=== PATIENT | male | born 1980 | race African-American/Black ===

== ENCOUNTER 2017-01-13 02:36 | Emergency (ER) | payer OTHER ==
[2017-01-13 03:41] LABS: BASOPHIL 0.6 % (0-2.0); EOSINOPHIL 1.1 % (0-4.5); MCH 24.8 pg (25.7-33.7); MCHC 32.3 g/dl (32.0-35.9); MEAN CELL VOLUME 76.8 fl (80-96); MEAN PLT VOLUME 9.3 fl (7.5-11.1); NEUTROPHILS 68.3 % (42.8-82.8); PLATELET COUNT 234 K/MM3 (134-434); WHITE BLOOD COUNT 11.5 K/mm3 (4.0-10.0)
[2017-01-13 04:13] LABS: ALBUMIN 3.5 g/dl (3.4-5.0); AMYLASE 37 U/L (25-115); ANION GAP 10 (8-16); BILIRUBIN,TOTAL 0.4 mg/dL (0.2-1.0); CALCIUM 8.9 mg/dL (8.5-10.1); CO2 28 mmol/L (21-32); CREATININE 0.8 mg/dL (0.7-1.3); GLUCOSE,RANDOM 222 mg/dL (74-106); SGOT/AST 39 U/L (15-37); SGPT/ALT 43 U/L (12-78); TOT PROT 7.6 g/dl (6.4-8.2)
[2017-01-13 04:15] LABS: ALK PHOS 124 U/L (45-117); TROPONIN I < 0.02 ng/ml (0.00-0.05)
[2017-01-13 04:20] LABS: THYROID STIMULATING HORMONE 0.69 uIU/ml (0.358-3.74)
--- NOTE | 2017-01-13 04:23 | PDOC ---
History of Present Illness - General Chief Complaint: Blood Sugar Problem Stated Complaint: BLOOD SUGAR PROBLEM Time Seen by Provider: 01/13/17 02:42 History Source: Patient Exam Limitations: No Limitations - History of Present Illness Initial Comments: 01/13/17 04:18 36yo Male patient w/ PmHx: HLD, HTN, NIDDM, "Heart Problems," presents to ED with multiple complaints. Patient states his "sugar" is acting up. He states he has not taken his medications in weeks because he has been drinking lots of alcohol and smoking marijuana. Patient reports while at a barbecue today; he did not feel right. Last EtOH use: < 1 hour ago. Patient also verbalized he would like to speak with someone or he will go out into public and act out. He stated, he went to [facility] 3 times this week, and each time they have discharged him home. He denies HI/SI at this time. Past History - Travel Traveled outside of the country in the last 30 days: No Close contact w/someone who was outside of country & ill: No - Past Medical History Allergies/Adverse Reactions: Allergies Allergy/AdvReac Type Severity Reaction Status Date / Time shellfish derived AdvReac Severe Difficulty Verified 01/13/17 02:48 Breathing Home Medications: Ambulatory Orders NK [No Known Home Medication] 07/09/15 Anemia: No Asthma: Yes Cancer: No Cardiac Disorders: No CVA: No COPD: No CHF: No Dementia: No Diabetes: No GI Disorders: No Disorders: No HTN: No Hypercholesterolemia: No Kidney Stones: No Liver Disease: No Suicide Attempt (Hx): No Seizures: No Thyroid Disease: No - Reproductive History Testicular Surgery: No - Immunization History Immunization Up to Date: Yes - Psycho/Social/Smoking Cessation Hx Anxiety: No Suicidal Ideation: No Smoking History: Current some day smoker Have you smoked in the past 12 months: Yes Number of Cigarettes Smoked Daily: 20 Information on smoking cessation initiated: No 'Breaking Loose' booklet given: 07/09/15 Hx Alcohol Use: No Drug/Substance Use Hx: No Substance Use Type: Alcohol, Cocaine, Heroin, Marijuana Hx Substance Use Treatment: Yes (discharged 07/10/15 with the same) Review of Systems - Review of Systems Able to Perform ROS?: Yes Is the patient limited Croatian proficient: No All Other Systems: Reviewed and Negative *Physical Exam - Vital Signs Last Vital Signs Temp Pulse Resp BP Pulse Ox 96 H 14 156/91 99 01/13/17 02:49 01/13/17 02:49 01/13/17 02:49 01/13/17 02:49 - Physical Exam General Appearance: Yes: Nourished, Appropriately Dressed. No: Apparent Distress, Mild Distress, Moderate Distress, Severe Distress Neck: positive: Trachea midline, Supple. negative: Stridor, Lymphadenopathy (R) , Lymphadenopathy (L), Tender lateral, Tender midline Respiratory/Chest: positive: Decreased Breath Sounds (Due to poor inspiratory effort.). negative: Respiratory Distress, Accessory Muscle Use, Labored Respiration, Rapid RR, Stridor, Wheezing Cardiovascular: positive: Regular Rhythm, Regular Rate Gastrointestinal/Abdominal: positive: Normal Bowel Sounds, Soft, Other (Large Abdomen) Musculoskeletal: positive: Normal Inspection. negative: CVA Tenderness Extremity: positive: Normal Capillary Refill, Normal Inspection, Normal Range of Motion. negative: Pedal Edema, Swelling, Calf Tenderness, Erythema, Inflammation Integumentary: positive: Normal Color, Dry, Warm. 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
[2017-01-13 04:38] LABS: SALICYLATE < 4.0 mg/dl (0.0-30.0)
[2017-01-13 05:01] LABS: ACETONE SERUM NEGATIVE (NEGATIVE)
[2017-01-13] MEDS ORDERED: POTASSIUM CHLORIDE TABS 20 MEQ TABLET.ER (FP) PO ONE ×2 (07:04→07:58)
[2017-01-13] MEDS ORDERED: SODIUM CHLORIDE 1,000 ML IV STA (07:24)
--- NOTE | 2017-01-13 07:26 | PDOC ---
*Physical Exam - Vital Signs Last Vital Signs Temp Pulse Resp BP Pulse Ox 96 H 14 156/91 99 01/13/17 02:49 01/13/17 02:49 01/13/17 02:49 01/13/17 02:49 ED Treatment Course - LABORATORY CBC & Chemistry Diagram: 01/13/17 03:11 01/13/17 03:11 - ADDITIONAL ORDERS Additional order review: Laboratory Results 01/13/17 01/13/17 01/13/17 03:11 03:11 03:11 Sodium Potassium Chloride Carbon Dioxide Anion Gap BUN Creatinine Creat Clearance w eGFR Random Glucose Calcium Total Bilirubin AST ALT Alkaline Phosphatase Creatine Kinase Creatine Kinase Index CK-MB (CK-2) CK-MB (CK-2) Rel Index Cancelled Troponin I Total Protein Albumin Total Amylase Lipase TSH 0.69 Salicylates < 4.0 Acetaminophen < 2.000 L Acetone, Qual 01/13/17 03:11 Sodium 141 Potassium 3.3 L Chloride 103 Carbon Dioxide 28 Anion Gap 10 BUN 8 Creatinine 0.8 Creat Clearance w eGFR > 60 Random Glucose 222 H D Calcium 8.9 Total Bilirubin 0.4 D AST 39 H D ALT 43 D Alkaline Phosphatase 124 H Creatine Kinase 596 H Creatine Kinase Index 0.2 CK-MB (CK-2) 1.276 CK-MB (CK-2) Rel Index Troponin I < 0.02 Total Protein 7.6 Albumin 3.5 Total Amylase 37 Lipase 78 TSH Salicylates Acetaminophen Acetone, Qual Negative 01/13/17 03:11 RBC 5.20 MCV 76.8 L MCHC 32.3 RDW 16.0 H MPV 9.3 Neutrophils % 68.3 Lymphocytes % 23.2 D Monocytes % 6.8 Eosinophils % 1.1 Basophils % 0.6 Medical Decision Making - Medical Decision Making 01/13/17 07:25 Patient received in sign out from MARY Black. Patient with elevated CK and low potassium. Patient was given Juany Dur and will be given a number saline bolus and will check magnesium secondary to alcohol intake. Patient requesting psych secondary to auditory hallucinations but denies any hopelessness. Patient states history of bipolar and auditory hallucinations and was on Seroquel up until October but when he was discharged from nursing home, he was not given his prescription and did not follow-up with his psychiatrist. Patient states sometimes the voices told to do things that he would not normally do including saying things, binge drinking, and acting bizarre. Patient denies plan to injure others or himself. 01/13/17 01/13/17 01/13/17 03:11 03:11 03:11 WBC 11.5 H Hgb 12.9 Hct 40.0 Plt Count 234 Neutrophils % 68.3 Potassium 3.3 L Random Glucose 222 H D AST 39 H D ALT 43 D Creatine Kinase 596 H Troponin I < 0.02 TSH Salicylates < 4.0 Acetaminophen < 2.000 L Acetone, Qual Negative 01/13/17 03:11 WBC Hgb Hct Plt Count Neutrophils % Potassium Random Glucose AST ALT Creatine Kinase Troponin I TSH 0.69 Salicylates Acetaminophen Acetone, Qual 01/13/17 08:18 Laboratory Tests 01/13/17 03:11 Magnesium 2.1 TSH 0.[address] Sandhu. 01/13/17 11:47 Laboratory Tests 01/13/17 10:12 Phencyclidine Screen Positive U Marijuana (THC) Screen Positive Patient has been seen by Dr. Waller psychiatrist who feels patient would benefit from an inpatient psychiatric facility. Patient has been medically cleared by emergency medical staff. Vital signs are within normal limits.. Patient is otherwise stable from a medical standpoint. 01/13/17 13:20 [address]iscuss[address] case with psychiatrist Dr. Marcano at [facility] psychiatric emergency department. He has accepted the patient was he will wait for a bed until inpatient psychiatric bed is available. Patient remained stable here. Patient ate lunch and patient currently resting. *DC/Admit/Observation/Transfer Diagnosis at time of Disposition: Polysubstance abuse, Bipolar affective disorder, Auditory hallucinations - Discharge Dispostion Disposition: TRANSFER ACUTE CARE/OTHER HOSP Condition at time of disposition: Good - Patient Instructions Printed Discharge Instructions: DI for Bipolar Disorder Additional Instructions: Please utilize all your resources at the facility and remain on medication as prescribed. - Transfer to Acute Care Facility Receiving Facility: [facility] Accepting Physician:: rissa
[2017-01-13 07:55] LABS: MAGNESIUM 2.1 mg/dL (1.8-2.4)
[2017-01-13 08:26] VITALS: TEMP 98.3
[2017-01-13 10:32] LABS: URINE APPEARANCE CLEAR; URINE BILIRUBIN NEGATIVE (NEGATIVE); URINE BLOOD NEGATIVE (NEGATIVE); URINE COLOR YELLOW; URINE GLUCOSE (UA) 3+ (NEGATIVE); URINE KETONE TRACE (NEGATIVE); URINE LEUK ESTERASE NEGATIVE (NEGATIVE); URINE NITRITE NEGATIVE (NEGATIVE); URINE PROTEIN NEGATIVE (NEGATIVE); URINE UROBILINOGEN 2.0 E.U/dl E.U./dl (0.2-1.0)
[2017-01-13 10:52] LABS: URINE MARIJUANA THC POSITIVE ng/ml (CUTOFF=50)
--- NOTE | 2017-01-13 11:54 | CON.PSY ---
Psychiatry Consult Chief Complaint: i ma hearing voices telling me to kill myself and hurt others. Symptoms: reports: Hallucinations - Previous Psychiatric Treatment Outpatient: Less than 6 mos ago Inpatient: 2 or more prior admissions - Previous Substance Abuse Treatment Outpatient: None - Reason for Previous Treatment Reason for Previous Treatment: Psychotic Episode - Allergies Allergies: Allergies Allergy/AdvReac Type Severity Reaction Status Date / Time shellfish derived AdvReac Severe Difficulty Verified 01/13/17 02:48 Breathing - Current Living Status Usual Living Arrangement: Alone - Current Mental Status Evaluation Appearance: Disheveled Attitude: Guarded - Affect Affect: Constrictive Appropriateness: Not Appropriate - Mood Mood: Anxious - Speech/Language Expressive: Coherent - Psychomotor Activity Psychomotor Activity: Slowed - Thought Process Thought Process: Circumstantial - Thought Content Hallucinations: Present Type: Auditory Delusions: Absent - Self Perception Self Perception: No Impairment - Cognition Attention: Alert Orientation: Time Memory, Immediate Recall: Intact Memory, Remote with Promptin/3 - Concentration Serial Sevens Intact: No Simple Calculations Intact: No - Abstraction Proverb Interpretation: Impaired Judgement: Moderately Impaired - Insight Insight: Impaired - Impulse Control Impulse Control: Minimally Impaired - Suicidal Ideation Suicidal Ideation: No - Homicidal Ideation Homicidal Ideation: Yes (command hallucinations) Assessment/Plan Rec In patiemt psych admission.
[2017-01-13] MEDS ORDERED: ACETAMINOPHEN 500 MG TABLET (FP) PO ONE (12:45)
[2017-01-13] MEDS ORDERED: ACETAMINOPHEN 325 MG TABLET (FP) ONE (12:47)
[2017-01-13 13:47] VITALS: BMI 33.9
[2017-01-13] MEDS ORDERED: IBUPROFEN 600 MG TABLET (FP) PO ONE ×2 (14:24→14:25)
[2017-01-13 14:48] VITALS: BP 165/95; PULSE 81
== END 2017-01-13 15:09 | disposition short-term general hospital (02) ==
LOC: JER 02:36
DX: R44.0 Auditory hallucinations (principal); F31.9 Bipolar disorder, unspecified; F19.10 Other psychoactive substance abuse, uncomplicated; I10 Essential (primary) hypertension; E11.9 Type 2 diabetes mellitus without complications; E78.5 Hyperlipidemia, unspecified; I51.9 Heart disease, unspecified; F17.210 Nicotine dependence, cigarettes, uncomplicated
CPT/HCPCS: 36415; 80053; 80307; 81003; 82009; 82150; 82550; 82553; 83690; 83735; 84443; 84484; 85025; 99283-25

== ENCOUNTER 2017-01-24 01:42 | Emergency (ER) | payer OTHER ==
[2017-01-24 02:06] VITALS: BP 138/68; PULSE 99; TEMP 97.2; BMI 37.8
== END 2017-01-24 03:16 | disposition left against medical advice (07) ==
LOC: JER 01:42
DX: Z53.21 Procedure and treatment not carried out due to patient leaving prior to being seen by health care provider (principal)
CPT/HCPCS: 99282-25

== ENCOUNTER 2018-03-21 00:35 | Emergency (ER) | payer OTHER ==
[2018-03-21 00:52] VITALS: BP 155/92; PULSE 88; TEMP 98.5; BMI 36.9
[2018-03-21] MEDS ORDERED: SODIUM CHLORIDE 0.9% 500 ML INFUS.BAG IV ONE (02:03)
--- NOTE | 2018-03-21 02:14 | PDOC ---
History of Present Illness - General Chief Complaint: Blood Sugar Problem Stated Complaint: BLOOD SUGAR/FOOT NUMBNESS Time Seen by Provider: 03/21/18 01:12 History Source: Patient Exam Limitations: No Limitations - History of Present Illness Initial Comments: 03/21/18 02:12 Patient is 37 year old male with h/o DM, TTP c/o right leg numbness, pain to the thigh since 3 pm today. States was sitting in Bible study and developed this crampy pain /10 in the right posterior thigh and then got numbness down the leg. He has had prior history of similar symptoms with elevation in his blood sugar 3-4 months ago. He reports has not taken his lantus inuslin in 2 weeks and his regular insulin since 02/16. States he ran out and has not been ago to get his meds due to insurance problems. Has been drinking lots of water to keep his BS done. Denies any chest pain, sob, abdominal pain. confusion. PMHX: as above PSOCHX: neg cig, former substance abuse ALL: NKDA GENERAL/CONSTITUTIONAL: [No fever or chills. No weakness. No weight change.] HEAD, EYES, EARS, NOSE AND THROAT: [No change in vision. No ear pain or discharge. No sore throat.] CARDIOVASCULAR: [No chest pain or shortness of breath.] RESPIRATORY: [No cough, wheezing, or hemoptysis.] GASTROINTESTINAL: [No nausea, vomiting, diarrhea or constipation. No rectal bleeding.] GENITOURINARY: [No dysuria, frequency, or change in urination.] MUSCULOSKELETAL: [No joint (+) muscle pain, (-) swelling. No neck or back pain.] SKIN AND BREASTS: [No rash or easy bruising.] NEUROLOGIC: [No headache, vertigo, loss of consciousness, or loss of sensation.] PSYCHIATRIC: [No depression or anxiety.] ENDOCRINE: (+) increased thirst. No abnormal weight change.] HEMATOLOGIC/LYMPHATIC: [No anemia, easy bleeding, or history of blood clots.] ALLERGIC/IMMUNOLOGIC: [No hives or skin allergy. No latex allergy.] GENERAL: [The patient is awake, alert, and fully oriented, in no acute distress. ] HEAD: [Normal with no signs of trauma.] EYES: [Pupils equal, round and reactive to light, extraocular movements intact, sclera anicteric, conjunctiva clear.] ENT: [Ears normal, nares patent, oropharynx clear without exudates. Moist mucous membranes.] NECK: [Normal range of motion, supple without lymphadenopathy, JVD, or masses.] LUNGS: [Breath sounds equal, clear to auscultation bilaterally. No wheezes, and no crackles.] HEART: [Regular rate and rhythm, normal S1 and S2 without murmur, rub.] ABDOMEN: [Soft, nontender, normoactive bowel sounds. No guarding, no rebound. No masses.] EXTREMITIES: [Normal range of motion, no edema. No clubbing or cyanosis. No cords, erythema, (+) right thigh tenderness.] NEUROLOGICAL: [Cranial nerves II through XII grossly intact. Normal speech, normal gait.] PSYCH: [Normal mood, normal affect.] SKIN: [Warm, Dry, normal turgor, no rashes or lesions noted.] Past History - Past Medical History Allergies/Adverse Reactions: Allergies Allergy/AdvReac Type Severity Reaction Status Date / Time Iodinated Contrast- Oral and Allergy Verified 03/21/18 00:53 IV Dye shellfish derived AdvReac Severe Difficulty Verified 03/21/18 00:53 Breathing Home Medications: Ambulatory Orders Insulin (Levemir) [Levemir Flexpen -] 40 units SQ HS 01/24/17 metFORMIN HCL [Metformin HCl] 500 mg PO BID 01/24/17 Insulin Glargine,Hum.rec.anlog [Lantus] 40 unit SQ HS #1 vial 03/21/18 Insulin Regular [NOVOLIN R VIAL *IVPUSH / ER / ICU Only*] 0 units SQ TID Insulin Regular [Novolin R Vial -] 2 units SQ TID #1 vial 03/21/18 Anemia: No Asthma: Yes Cancer: No Cardiac Disorders: No CVA: No COPD: No CHF: No Dementia: No Diabetes: Yes GI Disorders: No Disorders: No HTN: No Hypercholesterolemia: No Kidney Stones: No Liver Disease: No Seizures: No Thyroid Disease: No - Reproductive History Testicular Surgery: No - Immunization History Immunization Up to Date: Yes - Suicide/Smoking/Psychosocial Hx Smoking History: Never smoked Have you smoked in the past 12 months: Yes Number of Cigarettes Smoked Daily: 20 Information on smoking cessation initiated: No 'Breaking Loose' booklet given: 07/09/15 Hx Alcohol Use: Yes Drug/Substance Use Hx: Yes (marijuana) Substance Use Type: Alcohol, Cocaine, Heroin, Marijuana Hx Substance Use Treatment: Yes (discharged 07/10/15 with the same) *Physical Exam - Vital Signs Last Vital Signs Temp Pulse Resp BP Pulse Ox 98.5 F 88 18 155/92 99 03/21/18 00:50 03/21/18 00:50 03/21/18 00:50 03/21/18 00:50 03/21/18 00:50 ED Treatment Course - LABORATORY CBC & Chemistry Diagram: 03/21/18 02:00 03/21/18 02:00 - ADDITIONAL ORDERS Additional order review: Laboratory Results 03/21/18 01:51 POC Glucometer [id number] 03/21/18 01:51 POC Glucometer [id number] - Medications Given in the ED: ED Medications Discontinued Medications Generic Name Dose Route Start Last Admin Trade Name Freq PRN Reason Stop Dose Admin Sodium Chloride 1,000 ml 03/21/18 02:03 03/21/18 02:04 Normal Saline - IV 03/21/18 02:04 1,000 ml ONCE ONE Administration Medical Decision Making - Medical Decision Making 03/21/18 02:12 Patient is 37 year old male with h/o DM, TTP c/o right leg numbness, pain to the thigh since 3 pm today, similar to pain in the past with elevation in his blood sugar. will get labs r/o dka hydration No acute findings on labs 03/21/18 05:57 Laboratory Tests 03/21/18 03/21/18 02:00 02:11 D-Dimer 407 Sodium 137 Potassium 4.0 D Chloride 102 Carbon Dioxide 28 Anion Gap 7 L Random Glucose 315 H* D will discharge and given rx for insulin I discussed the physical exam findings, ancillary test results and final diagnoses with the patient. I answered all of the patient's questions. The patient was satisfied with the care received and felt comfortable with the discharge plan and treatment plan. The Patient agrees to follow up with the primary care physician within 24-72 hours. *DC/Admit/Observation/Transfer Diagnosis at time of Disposition: Leg cramping, Hyperglycemia - Discharge Dispostion Disposition: HOME Condition at time of disposition: Stable - Prescriptions Prescriptions: Insulin Glargine,Hum.rec.anlog [Lantus] 40 unit SQ HS #1 vial Insulin Regular [Novolin R Vial -] 2 units SQ TID #1 vial - Referrals - Patient Instructions Additional Instructions: You must follow up with your pmd in 1-2 days, return to the ED if worsening symptoms - Post Discharge Activity
[2018-03-21 02:16] LABS: EOS % 1.3 % (0-4.5); HEMATOCRIT 41.8 % (35.4-49); HEMOGLOBIN 13.5 GM/dL (11.7-16.9); LYMPH % 28.7 % (8-40); MCH 25.3 pg (25.7-33.7); MCHC 32.3 g/dl (32.0-35.9); MEAN CELL VOLUME 78.4 fl (80-96); MEAN PLT VOLUME 9.7 fl (7.5-11.1); MONO % 6.3 % (3.8-10.2); NEUT % 62.7 % (42.8-82.8); PLATELET COUNT 254 K/MM3 (134-434); RBC 5.33 M/mm3 (4.00-5.60); RDW 15.7 % (11.9-15.9); WHITE BLOOD COUNT 10.1 K/mm3 (4.0-10.0)
[2018-03-21 02:21] LABS: URINE APPEARANCE CLEAR; URINE BILIRUBIN NEGATIVE (<2.0 mg/dL); URINE COLOR LTYELLOW; URINE GLUCOSE (UA) 3+ (NEGATIVE); URINE KETONE TRACE (NEGATIVE); URINE LEUK ESTERASE NEGATIVE (NEGATIVE); URINE NITRITE NEGATIVE (NEGATIVE); URINE PROTEIN NEGATIVE (NEGATIVE)
[2018-03-21 02:31] LABS: INR 1.02 (0.83-1.09); PROTHROMBIN TIME (PATIENT) 11.5 SEC (9.7-13.0)
[2018-03-21 02:33] LABS: ACTIVATED PTT 30.6 SECONDS (25.2-36.5)
[2018-03-21 02:39] LABS: ALBUMIN 3.4 g/dl (3.4-5.0); ALK PHOS 123 U/L (45-117); ANION GAP 7 MMOL/L (8-16); BILIRUBIN,TOTAL 0.3 mg/dL (0.2-1.0); BLOOD UREA NITROGEN 11 mg/dL (7-18); CALCIUM 8.8 mg/dL (8.5-10.1); CHLORIDE 102 mmol/L (98-107); CO2 28 mmol/L (21-32); CREATININE 0.9 mg/dL (0.7-1.3); SGOT/AST 12 U/L (15-37); SGPT/ALT 38 U/L (12-78); SODIUM 137 mmol/L (136-145); TOT PROT 7.4 g/dl (6.4-8.2)
[2018-03-21 02:41] LABS: GLUCOSE,RANDOM 315 mg/dL (74-106)
[2018-03-21] MEDS ORDERED: ACETAMINOPHEN 500 MG TABLET (FP) PO ONE (04:26)
[2018-03-21] MEDS ORDERED: INSULIN (LEVEMIR) 100 UNITS/ML UNITS SQ ONE ×2 (04:26→04:34)
[2018-03-21] MEDS ORDERED: ACETAMINOPHEN 325 MG TABLET (FP) ONE (04:32)
== END 2018-03-21 06:54 | disposition home or self-care (01) ==
LOC: JER 00:35
PROC: 3E013VG Introduction of Insulin into Subcutaneous Tissue, Percutaneous Approach (ICD-10-PCS; principal; 2018-03-21)
DX: E10.65 Type 1 diabetes mellitus with hyperglycemia (principal); R25.2 Cramp and spasm; Z79.4 Long term (current) use of insulin
CPT/HCPCS: 36415; 80053; 81003; 82962; 85025; 85379; 85610; 85730; 96372; 99283-25

== ENCOUNTER 2018-04-07 18:34 | Emergency (ER) | payer OTHER ==
[2018-04-07] MEDS ORDERED: IBUPROFEN 400 MG TABLET (FP) PO ONE ×2 (18:41→20:33)
[2018-04-07 18:42] VITALS: BP 153/93; PULSE 78; TEMP 98; BMI 37.3
--- NOTE | 2018-04-07 18:44 | PDOC ---
Rapid Medical Evaluation Chief Complaint: Injury Time Seen by Provider: 04/07/18 18:40 Medical Evaluation: Allergies Allergy/AdvReac Type Severity Reaction Status Date / Time Iodinated Contrast- Oral and Allergy Verified 03/21/18 00:53 IV Dye shellfish derived AdvReac Severe Difficulty Verified 03/21/18 00:53 Breathing Vital Signs Temp Pulse Resp BP Pulse Ox 98 F 78 19 153/93 100 04/07/18 18:40 04/07/18 18:40 04/07/18 18:40 04/07/18 18:40 04/07/18 18:40 04/07/18 18:42 I have performed a brief in person evaluation of this patient. The patient presents with chief complaint of : left anterior knee pain s/p slip on oil and fall hitting left knee Pertinent PE findings: moderate tenderness over anterior infra-patella region of left knee I have ordered the following: x-ray of left knee The patient will proceed to the ER for further evaluation Discharge Disposition - Diagnosis Left anterior knee pain - Referrals - Patient Instructions - Post Discharge Activity
--- NOTE | 2018-04-07 20:18 | PDOC ---
Attending Attestation - Resident Resident Name: Rogerio Goodman - ED Attending Attestation I have performed the following: I have examined & evaluated the patient, The case was reviewed & discussed with the resident, I agree w/resident's findings & plan, Exceptions are as noted - Medical Decision Making 04/07/18 20:18 I, Dr. Hermelinda Ga, DO, attest that this document has been prepared under my direction and personally reviewed by me in its entirety. I further attest, that it accurately reflects all work, treatment, procedures and medical decision -making performed by me. 04/07/18 20:50 a/p: 37yo male with mechanical slip and fall and twisted his L knee -pt with mild soft tissue swelling, no ecchymosis or erythema -ternderness medially along the ligament -will obtain xrays -will give straight leg brace and crutches will need orthopedic follow up 04/07/18 21:19 xrays do not show acute findings <Hermelinda Ga - Last Filed: 04/07/18 21:19> - HPI HPI: 04/07/18 21:37 The patient is a 37 year old male, with a significant past medical history of asthma and diabetes, who presents to the ED complaining of left knee pain after a mechanical fall today. He notes that he slipped and fell today and fell on his left knee. He describes the jacobs as ranging from mild to moderate, without radiation. He notes that it is painful to ambulate and to bear weight. He denies any other kinds of injuries. The patient denies chest pain, shortness of breath, headache and dizziness. Allergies: IV dye contrast Past surgical history: None reported Social History: Alcohol, Cocaine, Heroin, Marijuana. Cigarette use (20 daily) - Physicial Exam PE: 04/07/18 21:36 Constitutional: Awake, alert, oriented. No acute distress. Head: Normocephalic. Atraumatic Eyes: PERRL. EOMI. Conjunctivae are not pale. ENT: Mucous membranes are moist and intact. Posterior pharynx without exudates or erythema. Uvula midline. Neck: Supple. Full ROM. No lymphadenopathy. Cardiovascular: Regular rate. Regular rhythm. S1, S2 regular. Distal pulses are 2+ and symmetric. Pulmonary/Chest: No evidence of respiratory distress. Clear to auscultation bilaterally No wheezing, rales or rhonchi. Abdominal: Soft and non-distended. There is no tenderness. No rebound, guarding or rigidity. No organomegaly. No palpable masses. Good bowel sounds. Back: No CVA tenderness. Musculoskeletal: (+) Warmth and swelling of left knee. No abrasions or cuts noted. Able to raise and extend the knee but limited ROM and flexion secondary to pain. Tendenress over medial aspect of the left MCL. Skin: Skin is warm and dry. No petechiae. No purpura. Neurological: Alert and oriented to person, place, and time. Cranial nerves II -XII are grossly intact. Normal speech. Strength is grossly symmetric. No sensory deficits. Psychiatric: Good eye contact. Normal interaction, affect and behavior. <Porfirio Byrd - Last Filed: 04/07/18 21:40>
--- NOTE | 2018-04-07 21:08 | PDOC ---
History of Present Illness - General Chief Complaint: Injury Stated Complaint: FALL/ LT KNEE PAIN Time Seen by Provider: 04/07/18 18:40 - History of Present Illness Initial Comments: 04/07/18 21:22 37 yo M w/ a hx of alcohol abuse is here after he tripped on a pile of oil, slipped, fell backwards and landed on his Left knee. He heard a pop and is sure he tore multiple ligaments in his knee. He claims his knee swelled up after the fall and he was not able to put weight on the knee. He once tore the meniscus in his Right knee and said this was way worse than that. He has not taken any medication for the pain. He denies recent fevers, chills, or infection. Denies chest pain, SOB, or difficulty breathing. Past History - Past Medical History Allergies/Adverse Reactions: Allergies Allergy/AdvReac Type Severity Reaction Status Date / Time Iodinated Contrast- Oral and Allergy Verified 04/07/18 18:42 IV Dye shellfish derived AdvReac Severe Difficulty Verified 04/07/18 18:42 Breathing Home Medications: Ambulatory Orders Insulin (Levemir) [Levemir Flexpen -] 40 units SQ HS 01/24/17 metFORMIN HCL [Metformin HCl] 500 mg PO BID 01/24/17 Insulin Glargine,Hum.rec.anlog [Lantus] 40 unit SQ HS #1 vial 03/21/18 Insulin Regular [NOVOLIN R VIAL *IVPUSH / ER / ICU Only*] 0 units SQ TID Insulin Regular [Novolin R Vial -] 2 units SQ TID #1 vial 03/21/18 Anemia: No Asthma: Yes Cancer: No Cardiac Disorders: No CVA: No COPD: No CHF: No DVT: No Dementia: No Diabetes: Yes GI Disorders: No Disorders: No HTN: No Hypercholesterolemia: No Kidney Stones: No Liver Disease: No Seizures: No Thyroid Disease: No - Reproductive History Testicular Surgery: No - Immunization History Immunization Up to Date: Yes - Suicide/Smoking/Psychosocial Hx Smoking History: Current every day smoker Have you smoked in the past 12 months: Yes Number of Cigarettes Smoked Daily: 10 Information on smoking cessation initiated: Yes 'Breaking Loose' booklet given: 04/07/18 Hx Alcohol Use: No Drug/Substance Use Hx: No Substance Use Type: None Hx Substance Use Treatment: Yes (discharged 07/10/15 with the same) Review of Systems - Review of Systems Comments:: 04/07/18 21:25 MUSCULOSKELETAL: Left knee: myalgia, arthralgia, joint swelling CONSTITUTIONAL: Absent: fever, chills, diaphoresis, generalized weakness, malaise, loss of appetite HEENT: Absent: rhinorrhea, nasal congestion, throat pain, throat swelling, difficulty swallowing, mouth swelling, ear pain, eye pain, visual Changes CARDIOVASCULAR: Absent: chest pain, syncope, palpitations, irregular heart rate, lightheadedness , peripheral edema RESPIRATORY: Absent: cough, shortness of breath, dyspnea with exertion, orthopnea, wheezing, stridor, hemoptysis GASTROINTESTINAL: Absent: abdominal pain, abdominal distension, nausea, vomiting, diarrhea, constipation, melena, hematochezia GENITOURINARY: Absent: dysuria, frequency, urgency, hesitancy, hematuria, flank pain, genital pain SKIN: Absent: rash, itching, pallor HEMATOLOGIC/IMMUNOLOGIC: Absent: easy bleeding, easy bruising, lymphadenopathy, frequent infections ENDOCRINE: Absent: unexplained weight gain, unexplained weight loss, heat intolerance, cold intolerance NEUROLOGIC: Positive: unsteady gait Absent: headache, focal weakness or paresthesias, dizziness, seizure, mental status changes, bladder or bowel incontinence PSYCHIATRIC: Positive: Anxiety Absent: depression, suicidal or homicidal ideation, hallucinations. *Physical Exam - Vital Signs Last Vital Signs Temp Pulse Resp BP Pulse Ox 98 F 78 19 153/93 100 04/07/18 18:40 04/07/18 18:40 04/07/18 18:40 04/07/18 18:40 04/07/18 18:40 - Physical Exam Comments: 04/07/18 21:27 Left Knee: The knee is mildly warmer than the R knee. it appears minimally swollen with no obvious effusion. There was significant tenderness to palpation at the medial aspect of his knee. Negative anterior and posterior drawer tests. His ROM is limited. There is significantly less strength in his L knee compared to the right. Normal sensation throughout both legs. 2+ pulses in both ankles. MUSCULOSKELETAL Normal range of motion at all other joints. No bony deformities or tenderness. No CVA tenderness. GENERAL: Well developed, well nourished. Awake and alert. No acute distress. HEENT: Normocephalic, atraumatic. PERRLA, EOMI. No conjunctival pallor. Sclera are non- icteric. Moist mucous membranes. Oropharynx is clear. NECK: Supple. Full ROM. No JVD. No thyromegaly. No lymphadenopathy. CARDIOVASCULAR: Regular rate and rhythm. No murmurs, rubs, or gallops. Distal pulses are 2+ and symmetric. PULMONARY: No evidence of respiratory distress. Lungs clear to auscultation bilaterally. No wheezing, rales or rhonchi. ABDOMINAL: Soft. Non-tender. Non-distended. No rebound or guarding. No organomegaly. Normoactive bowel sounds. EXTREMITIES: No cyanosis. No clubbing. No edema. No calf tenderness. SKIN: Warm and dry. Normal capillary refill. No rashes. No jaundice. NEUROLOGICAL: Alert, awake, appropriate. Cranial nerves 2-12 intact. Normal speech. PSYCHIATRIC: Cooperative. Good eye contact. Appropriate mood and affect. ED Treatment Course - Medications Given in the ED: ED Medications Discontinued Medications Generic Name Dose Route Start Last Admin Trade Name Desiree PRN Reason Stop Dose Admin Ibuprofen 800 mg 04/07/18 18:41 04/07/18 20:34 Motrin - PO 04/07/18 18:42 800 mg ONCE ONE Administration Medical Decision Making - Medical Decision Making 04/07/18 21:30 37 yo M slipped on oil, fell and experienced a traumatic blow to the knee. Xray showed no broken bones. This is likely a ligamentous or meniscal injury. This can be better assessed with an MRI as an outpatient. The knee is stable and not septic. He is neuro-vascularly intact. Plan: Ibuprofen, RICE, straight leg cast, crutches, DC with ortho FU. *DC/Admit/Observation/Transfer Diagnosis at time of Disposition: Left anterior knee pain, Knee joint injury - Discharge Dispostion Disposition: HOME Condition at time of disposition: Stable Decision to Admit order: No - Referrals Referrals: Allan Christine MD [Staff Physician] - Elias Guzman MD [Staff Physician] - Lon Mcgraw MD [Staff Physician] - - Patient Instructions Printed Discharge Instructions: Meniscal Tear, DI for Knee Pain, How to Use a Knee Immobilizer Additional Instructions: Please call up the orthopedics we are referring you to and schedule an appointment in the next 3 to 5 days. Take ibuprofen (Advil or motrin) for your knee pain. Try to keep your knee elevated as much as possible for the next 48 hours. Try to rest your knee as much as possible. Put ice on your knee for 20 minutes once every 2 hours for the next 2 days. Come back to the ER if you develop a fever, your pain worsens or have other concerning symptoms. Print Language: NAURUAN - Post Discharge Activity
== END 2018-04-07 21:17 | disposition home or self-care (01) ==
LOC: JERFT 18:34 → JER 18:34
DX: M25.562 Pain in left knee (principal); J45.909 Unspecified asthma, uncomplicated; E11.9 Type 2 diabetes mellitus without complications; F17.210 Nicotine dependence, cigarettes, uncomplicated
CPT/HCPCS: 73562-TC-LT-FY; 99281-25

== ENCOUNTER 2018-06-22 20:48 | Inpatient (IN) | payer OTHER ==
[2018-06-22 21:03] VITALS: BMI 38.9
--- NOTE | 2018-06-22 21:12 | HP ---
COWS - Scale Resting Pulse: 1= NH 81-100 Sweatin= No chills or Flushing Restless Observation: 0= Sits Still Pupil Size: 0= Normal to Room Light Bone or Joint Aches: 4=Acute Joint/Muscle Pain Runny Nose/ Eye Tearin= Nasal Congestion GI Upset > 30mins: 0= None Tremor Observation: 2= Slight Tremor Visible Yawning Observation: 0= None Anxiety or Irritability: 2=Irritable/Anxious Goose Flesh Skin: 0=Smooth Skin COWS Score: 10 CIWA Score - Admission Criteria [facility] Guidelines: Admission for Medically Managed Detox: Requires at least one of the followin. CIWA greater than 12 2. Seizures within the past 24 hours 3. Delirium tremens within the past 24 hours 4. Hallucinations within the past 24 hours 5. Acute intervention needed for co occurring medical disorder 6. Acute intervention needed for co occurring psychiatric disorder 7. Severe withdrawal that cannot be handled at a lower level of care (continued vomiting, continued diarrhea, abnormal vital signs) requiring intravenous medication and/or fluids 8. Admission [facility] Chief Complaint: c/o withdrawal sx's. seeking detox txment. Allergies/Adverse Reactions: Allergies Allergy/AdvReac Type Severity Reaction Status Date / Time Iodinated Contrast- Oral and Allergy Verified 06/22/18 21:08 IV Dye shellfish derived AdvReac Severe Difficulty Verified 06/22/18 21:08 Breathing History of Present Illness: Y.O. MALE WITH OPIOID AND COCAINE DEPENDENCE HERE FOR DETOX TXMENT. CLIENT IS SELF REFERRED. HE WAS LAST HERE IN 2014. HE IS SLATED TO START NEW FOCUS 2017. C/O WORSENING WITHDRAWAL SX'S. COWS 10. REPORTS LONGEST CLEAN TIME 3 YEARS SELF SUSTAINED. REPORTS MOST RESENT CLEAN TIME 6 MONTHS THIS PAST YEAR, RELAPSING 02/2018. HX/O DRUG O.D., DENIES SEIZURE D/O, SI/HI, AVH. PMHX- DM, THROMBOTIC THROMBOCYTOPENIC PURPURA, ASTHMA PSYCH- DEPRESSION, BIPOLAR MEDS- SHORT/LONG ACTING INSULIN. SEROQUEL NOT COMPLAINT Exam Limitations: No Limitations - Ebola screening Have you traveled outside of the country in the last 21 days: No Have you had contact with anyone from an Ebola affected area: No Have you been sick,other than usual withdrawal symptoms: No Do you have a fever: No - Review of Systems Constitutional: Malaise, Changes in sleep EENT: reports: Dental Problems (MISSING TEETH) Respiratory: reports: No Symptoms reported Cardiac: reports: No Symptoms Reported GI: reports: No Symptoms Reported : reports: No Symptoms Reported Musculoskeletal: reports: Back Pain, Joint Pain Integumentary: reports: No Symptoms Reported Neuro: reports: No Symptoms reported Endocrine: reports: Other (HX/O DM) Hematology: reports: Easy Bleeding (HX/O TTP) Psychiatric: reports: Depressed Other Systems: Reviewed and Negative Patient History - Patient Medical History Hx Anemia: No Hx Asthma: Yes Hx Chronic Obstructive Pulmonary Disease (COPD): No Hx Cancer: No Hx Cardiac Disorders: No Hx Congestive Heart Failure: No Hx Hypertension: No Hx Hypercholesterolemia: No Hx Pacemaker: No HX Cerebrovascular Accident: No Hx Seizures: No Hx Dementia: No Hx Diabetes: Yes Hx Gastrointestinal Disorders: No Hx Liver Disease: No Hx Genitourinary Disorders: No Hx Sexually Transmitted Disorders: No Hx Renal Disease (ESRD): No Hx Thyroid Disease: No Hx Human Immunodeficiency Virus (HIV): No Hx Hepatitis C: No Hx Depression: Yes Hx Suicide Attempt: No Hx Bipolar Disorder: No Hx Schizophrenia: No Other Medical History: TTP - Patient Surgical History Past Surgical History: No - PPD History Previous Implant?: Yes Documented Results: Negative w/proof Implanted On Prior [facility] Admission?: Yes Date: 07/11/15 Results: NO READING PPD to be Administered?: Yes - Smoking Cessation Smoking history: Current every day smoker Have you smoked in the past 12 months: Yes Aproximately how many cigarettes per day: 20 Cigars Per Day: 0 Hx Chewing Tobacco Use: No Initiated information on smoking cessation: Yes 'Breaking Loose' booklet given: 06/22/18 - Substance & Tx. History Hx Alcohol Use: No Hx Substance Use: Yes Substance Use Type: Cocaine, Heroin Hx Substance Use Treatment: Yes ([facility]) - Substances Abused HEROIN Route: Inhalation Frequency: Daily Amount used: 4 BAGS Age of first use: 31 Date of Last Use: 06/22/18 Family Disease History - Family Disease History Family Disease History: Diabetes: Grandparent, Respiratory: Brother (ASTHMA), Sister (ASTHMA) Admission Physical Exam [facility] - Vital Signs Vital Signs: Vital Signs - 24 hr 06/22/18 21:00 Temperature 97.4 F L Pulse Rate 97 H Respiratory 18 Rate Blood Pressure 145/74 - Physical General Appearance: Yes: Disheveled, Tremorous (FELLLT), Irritable, Other ( MALODUROUS) HEENTM: Yes: EOMI, Normocephalic, Normal Voice, RACQUEL, Pharynx Normal, Nasal Congestion, Other (POOR DENTITION) Respiratory: Yes: Chest Non-Tender, Lungs Clear, Normal Breath Sounds, No Respiratory Distress, No Accessory Muscle Use Neck: Yes: No masses,lesions,Nodules, Supple, Trachea in good position Breast: Yes: Breast Exam Deferred Cardiology: Yes: Regular Rhythm, S1, S2, Tachycardia Abdominal: Yes: Normal Bowel Sounds, Non Tender, Soft, Protuberent Genitourinary: Yes: Within Normal Limits (DENIES C/O) Back: Yes: Normal Inspection Musculoskeletal: Yes: full range of Motion, Other (AMbulates with cane for unsteady gait r/t to back pain and knee pain) Extremities: Yes: Normal Range of Motion, Non-Tender, Tremors (felt), Pedal Edema (trace edema to ble) Neurological: Yes: Fully Oriented, Alert, Depressed Affect Integumentary: Yes: Dry, Warm Lymphatic: Yes: Within Normal Limits - Diagnostic (1) Opioid dependence with withdrawal Current Visit: Yes Status: Acute (2) Diabetes Current Visit: Yes Status: Chronic Qualifiers: Diabetes mellitus type: type 2 (3) Substance induced mood disorder Current Visit: Yes Status: Suspected (4) Sexual arousal by exposure of genitals to non-consenting person Current Visit: Yes Status: Suspected Comment: HX/O. SEE LAST ADMISSION IN 2014 (5) Nicotine dependence Current Visit: No Status: Chronic Qualifiers: Nicotine product type: cigarettes Substance use status: uncomplicated Qualified Code(s): F17.210 - Nicotine dependence, cigarettes, uncomplicated Cleared for Admission [facility] - Detox or Rehab [facility] Level of Care: Medically Managed Detox Regimen/Protocol: Methadone Claeared for Rehab Admission: No [facility] Breath Alcohol Content Breath Alcohol Content: 0 Urine Drug Screen - Results Drug Screen Negative: No Urine Drug Screen Results: CHACHA-Cocaine, OPI-Opiates, FEN-Fentanyl
[2018-06-22] MEDS ORDERED: IBUPROFEN 400 MG TABLET (FP) PO PRN (21:42)
[2018-06-22] MEDS ORDERED: MENTHOL/PHENOL 1 EACH UD MM PRN (21:42)
[2018-06-22] MEDS ORDERED: diazePAM 5 MG TABLET PO PRN (21:42)
[2018-06-22] MEDS ORDERED: MAGNESIUM HYDROX 2400MG/30ML ORAL SUSPENSION 30 ML CUP PO PRN (21:42)
[2018-06-22] MEDS ORDERED: MAGNESIUM CITRATE 300 ML BOTTLE PO PRN (21:42)
[2018-06-22] MEDS ORDERED: LOPERAMIDE HCL 2 MG CAPSULE PO PRN (21:42)
[2018-06-22] MEDS ORDERED: ACETAMINOPHEN 325 MG TABLET (FP) PO PRN (21:42)
[2018-06-22] MEDS ORDERED: METHADONE HCL 10 MG TABLET (FOR DETOX USE ONLY) PO ONE ×2 (21:42→23:00)
[2018-06-22] MEDS ORDERED: guaiFENesin/D-METHORPHAN HB 10 ML UNIT-DOSE CUPS PO PRN (21:42)
[2018-06-22] MEDS ORDERED: MAG HYDROX/AL HYDROX/SIMETH 30 ML UNIT-DOSE CUP PO PRN (21:42)
[2018-06-22] MEDS ORDERED: P-EPHED 60MG/TRIPROLIDI 2.5MG TABLET PO PRN (21:42)
[2018-06-22] MEDS ORDERED: MELATONIN 5 MG TABLETS PO PRN (22:00)
[2018-06-22] MEDS ORDERED: THIAMINE HCL 100 MG TABLET (FP) PO SCH (22:00)
[2018-06-22] MEDS ORDERED: metFORMIN HCL 500 MG TABLET (FP) PO SCH (22:00)
[2018-06-22] MEDS ORDERED: NICOTINE POLACRILEX 2 MG GUM BC PRN (22:02)
[2018-06-22] MEDS ORDERED: ALBUTEROL SO4 8 GM HFA INHALER IH PRN (22:12)
[2018-06-22] MEDS ORDERED: INSULIN (LEVEMIR) 100 UNITS/ML UNITS SQ SCH (22:30)
[2018-06-23] MEDS ORDERED: diazePAM 5 MG TABLET PO PRN (00:14)
[2018-06-23] MEDS ORDERED: METHADONE HCL 10 MG TABLET (FOR DETOX USE ONLY) PO ONE ×4 (00:14→23:00)
[2018-06-23 01:04] LABS: URINE APPEARANCE TURBID; URINE BILIRUBIN NEGATIVE (<2.0 mg/dL); URINE COLOR YELLOW; URINE GLUCOSE (UA) NEGATIVE (NEGATIVE); URINE KETONE NEGATIVE (NEGATIVE); URINE LEUK ESTERASE NEGATIVE (NEGATIVE); URINE NITRITE NEGATIVE (NEGATIVE); URINE PROTEIN 1+ (NEGATIVE); URINE UROBILINOGEN 4.0 E.U/dl mg/dL (0.2-1.0)
[2018-06-23 01:38] LABS: URINE BACTERIA MANY /hpf (NONE SEEN); URINE MUCUS MANY
[2018-06-23] MEDS ORDERED: metFORMIN HCL 500 MG TABLET (FP) PO SCH (07:00)
[2018-06-23 09:26] VITALS: BP 147/78; PULSE 89; TEMP 97.6
[2018-06-23] MEDS ORDERED: NICOTINE 21 MG/24 HOURS TOPICAL PATCH TD SCH (10:00)
[2018-06-23] MEDS ORDERED: PRENATAL VITAMINS W/ FOLIC ACID TABLET (FP) PO SCH (10:00)
[2018-06-23 10:50] LABS: ALBUMIN 3.2 g/dl (3.4-5.0); ALK PHOS 93 U/L (45-117); ANION GAP 10 MMOL/L (8-16); BILIRUBIN,TOTAL 0.6 mg/dL (0.2-1); BLOOD UREA NITROGEN 8 mg/dL (7-18); CALCIUM 8.4 mg/dL (8.5-10.1); CHLORIDE 104 mmol/L (98-107); CO2 26 mmol/L (21-32); CREATININE 0.7 mg/dL (0.55-1.3); GLUCOSE,RANDOM 103 mg/dL (74-106); SGOT/AST 17 U/L (15-37); SGPT/ALT 19 U/L (13-61); SODIUM 140 mmol/L (136-145); TOT PROT 7.2 g/dl (6.4-8.2)
[2018-06-23 10:53] LABS: HEMATOCRIT 38.5 % (35.4-49); HEMOGLOBIN 12.3 GM/dL (11.7-16.9); MCH 24.4 pg (25.7-33.7); MCHC 31.8 g/dl (32.0-35.9); MEAN CELL VOLUME 76.7 fl (80-96); MEAN PLT VOLUME 9.3 fl (7.5-11.1); PLATELET COUNT 291 K/MM3 (134-434); RBC 5.02 M/mm3 (4.00-5.60); RDW 15.5 % (11.9-15.9); WHITE BLOOD COUNT 9.9 K/mm3 (4.0-10.0)
--- NOTE | 2018-06-23 10:58 | PN ---
[facility] Progress Note Note: Psychiatry Attending's note : Called to evaluate this patient for agitation and destructive behavior. Mr Mcfarland was admitted on 06/22/18 to [facility] for detoxification treatment. Issues : heroin, cocaine dependence co-morbid with Bipolar Disorder. Mr Mcfarland is out of control. Loud, threatening, throwing things around and not following redirections. Met with patient in his room. Site is littered with broken objects, overturned table, spilled foodstuffs, clothes. Patient found bare-chested. Hostile, intimidating, difficult to follow, mumbling. Clearly not suitable for care on a detox unit. Switchboard And Control Room Operator is not able to conduct a comprehensive psychiatric evaluation. Patient's conduct poses a risk of harm to others. Contact made with attending psychiatrist, Dr Prajapati ([phone]), currently covering the psychiatric emergency department at [facility]. Case discussed with Dr Prajapati : patient is already known to him. Dr Prajapati is made aware that Mr Mcfarland, given current situation, is unstable and that he cannot be treated at [facility]. Plan is to send the patient to [facility] psychiatric department for appropriate management.In the meantime, the patient is placed under 1:1 Constant Observation for safety. Dr Prajapati is in agreement with this plan. Discussed with the Multidisciplinary team. Patient is transferred to [facility] via EMS/[place] [employer] escort.
--- NOTE | 2018-06-23 11:29 | PN ---
[facility] Progress Note Note: NOTIFIED BY RN PATIENT REFUSED MORNING DOSE OF METHADONE. COUNSELING AND NURSING STAFF EDUCATED PATIENT REGARDING DETOX PROTOCOL AND TREATMENT. AFTER DISCUSSION, PATIENT BECAME AGITATED AND THREW BEDSIDE TABLE AND FOOD TRAY TO FLOOR. DR. MACIEL, PSYCHIATRY MD, CAME TO UNIT TO EVALUATE PATIENT. PATIENT MEDICALLY STABLE. V/S WITHIN NORMAL LIMITS. LABS PENDING. PATIENT EVALUATED BY DR. MACIEL AND TO DECISION MADE FOR PATIENT TO BE TRANSFERRED TO [facility]. PATIENT PLACED ON 1:1 UNTIL TRANSFER COMPLETE. REPORT GIVEN TO DR. RODAS BY DR. MACIEL. Vital Signs Temperature 97.6 F 06/23/18 09:24 Pulse Rate 89 06/23/18 09:24 Respiratory Rate 17 06/23/18 09:24 Blood Pressure 147/78 06/23/18 09:24 O2 Sat by Pulse Oximetry (%)
--- NOTE | 2018-06-23 11:47 | EKG ---
Test Reason : Blood Pressure : / mmHG Vent. Rate : 103 BPM Atrial Rate : 103 BPM P-R Int : 140 ms QRS Dur : 094 ms QT Int : 358 ms P-R-T Axes : 070 017 031 degrees QTc Int : 468 ms SINUS TACHYCARDIA OTHERWISE NORMAL ECG WHEN COMPARED WITH ECG OF 12-JUL-2015 13:32, NO SIGNIFICANT CHANGE WAS FOUND Confirmed by KIRSTIN LEDEZMA MD ([id number]) on 06/23/2018 11:47:19 AM Referred By: Confirmed By:KIRSTIN LEDEZMA MD
[2018-06-24] MEDS ORDERED: METHADONE HCL 5 MG TABLET (FOR DETOX USE ONLY) PO ONE (10:00)
[2018-06-24] MEDS ORDERED: METHADONE HCL 10 MG TABLET (FOR DETOX USE ONLY) PO ONE (10:00)
[2018-06-25] MEDS ORDERED: METHADONE HCL 5 MG TABLET (FOR DETOX USE ONLY) PO ONE ×2 (10:00)
[2018-06-26] MEDS ORDERED: METHADONE HCL 10 MG TABLET (FOR DETOX USE ONLY) PO ONE (10:00)
[2018-06-26] MEDS ORDERED: METHADONE HCL 5 MG TABLET (FOR DETOX USE ONLY) PO ONE (10:00)
[2018-06-27] MEDS ORDERED: METHADONE HCL 5 MG TABLET (FOR DETOX USE ONLY) PO ONE (06:00)
[2018-06-27] MEDS ORDERED: METHADONE HCL 10 MG TABLET (FOR DETOX USE ONLY) PO ONE (10:00)
[2018-06-28] MEDS ORDERED: METHADONE HCL 5 MG TABLET (FOR DETOX USE ONLY) PO ONE (06:00)
== END 2018-06-23 11:42 | disposition short-term general hospital (02) | DRG 773 ==
LOC: YASAS 20:48 → Y3N 23:38
PROC: HZ2ZZZZ Detoxification Services for Substance Abuse Treatment (ICD-10-PCS; principal; 2018-06-22)
DX: F11.23 Opioid dependence with withdrawal (principal); F17.210 Nicotine dependence, cigarettes, uncomplicated; F19.24 Other psychoactive substance dependence with psychoactive substance-induced mood disorder; F91.8 Other conduct disorders; F52.21 Male erectile disorder; E11.9 Type 2 diabetes mellitus without complications; R00.0 Tachycardia, unspecified; J45.909 Unspecified asthma, uncomplicated; Z91.041 Radiographic dye allergy status; Z91.013 Allergy to seafood
CPT/HCPCS: 36415; 80053; 81003; 81015; 82962; 85027; 86593; 87389; 93005; 93010